=== PATIENT | female | born 1965 | race Hispanic/Latino ===

== ENCOUNTER 2019-11-01 08:08 | Day surgery (SDC) | payer BC ==
[2019-11-01] MEDS ORDERED: fentaNYL 100 MCG/2 ML INJ IV PRN (08:49)
--- NOTE | 2019-11-01 08:49 | Anesthesia Consultation ---
Anesthesia Consult and Med Hx Date of service: 11/01/19 - Airway Anesthetic Teeth Evaluation: Good ROM Head & Neck: Adequate Mental/Hyoid Distance: Adequate Mallampati Class: Class II Intubation Access Assessment: Probably Good - Pulmonary Exam CTA: Yes - Cardiac Exam Cardiac Exam: RRR - Pre-Operative Health Status ASA Pre-Surgery Classification: ASA3 Proposed Anesthetic Plan: General - Pulmonary Hx Smoking: No Hx Respiratory Symptoms: No Hx Sleep Apnea: Yes (compliant with CPAP) - Cardiovascular System Hx Hypertension: Yes (recent diagnosis, no currently on meds) Hx Heart Attack/AMI: No Hx Percutaneous Transluminal Coronary Angioplasty (PTCA): No - Central Nervous System CVA: No - Gastrointestinal Hx Gastroesophageal Reflux Disease: No - Endocrine Hx Renal Disease: No Hx Liver Disease: No Hx Insulin Dependent Diabetes: No Hx Non-Insulin Dependent Diabetes: No Hx Thyroid Disease: No - Other Systems Hx Obesity: Yes (BMI 42) - Additional Comments Anesthesia Medical History Comments: No hx anesthetic complications.
--- NOTE | 2019-11-01 08:49 | Anesthesia Day of Surgery ---
Anesthesia Day of Surgery - Day of Surgery Patient Examined: Yes Patient H&P Reviewed: Yes Patient is NPO: Yes
[2019-11-01] MEDS ORDERED: LACTATED RINGERS 1,000 ML IV SCH (09:00)
[2019-11-01] MEDS ORDERED: MIDAZOLAM 2 MG/2 ML INJ IV NR (09:00)
[2019-11-01] MEDS ORDERED: LIDOCAINE MPF (2%) 20 MG/1 ML VIAL 5 ML ONE (10:32)
[2019-11-01] MEDS ORDERED: fentaNYL 100 MCG/2 ML INJ ONE (10:32)
[2019-11-01] MEDS ORDERED: propofoL 200 MG/20 ML VIAL IV ONE (10:33)
[2019-11-01] MEDS ORDERED: dexAMETHasone 20 MG/5 ML VIAL ONE (11:44)
[2019-11-01] MEDS ORDERED: ONDANSETRON 4 MG/2 ML INJ ONE (11:44)
[2019-11-01] MEDS ORDERED: IOHEXOL 300 MG/ML 50ML IV ONE (12:05)
--- NOTE | 2019-11-01 12:05 | Post Operative Note ---
Date of procedure: 11/01/19 Pre-op diagnosis: left ureteral stone Post-op diagnosis: same Findings: stone Procedure: cysto ureteroscpy Anesthesia: GETA Estimated blood loss: none Pathology: list (stone) Specimen disposition: given to patient/family Condition: stable Disposition: PACU
--- NOTE | 2019-11-01 12:05 | Discharge Summary ---
Short Stay Discharge Plan Activity: other (no straining) Weight Bearing Status: Full Weight Bearing Diet: regular, low fat Special Instructions: other (stent) Durable Medical Equipment Needed Upon Discharge: other (j stent) Follow up with: PABLITO BLAND PA [Primary Care Provider] - 7 Days DORITA TURK MD [Staff Physician] - 7 Days
--- NOTE | 2019-11-01 12:25 | Operative Report ---
PREOPERATIVE DIAGNOSIS: Left distal ureteral stone. POSTOPERATIVE DIAGNOSIS: Left distal ureteral stone. PROCEDURE: Cystoscopy, left retrograde, left ureteroscopy, balloon dilatation, stone extraction, J stent. SURGEON: Dr. Perez. ANESTHESIA: General. FINDINGS: This is a woman with intermittent pain, left flank and now presents for treatment. All risks and implications discussed. DESCRIPTION OF PROCEDURE: The patient was brought out to the operating room and placed on the operating table. Following induction of anesthesia, placed in lithotomy position, prepped and draped in usual sterile fashion. The patient has a moderate enterocele and rectocele. Retrograde showed some colonization distal ureter. Balloon dilatation was carried out after wire coiled in the kidney. Ureteroscopy revealed the stone, which was extracted with a 3-prong grasper. The patient tolerated the procedure well. Double-J coiled in the kidney and bladder with the string, brought to recovery in stable condition. JOB# [id number] LORRAINE/TANG
[2019-11-01 13:31] VITALS: BP 127/85
--- NOTE | 2019-11-01 14:21 | Fluoroscopy Report ---
INTRAOPERATIVE FLUOROSCOPY: ABDOMEN INDICATION: LT URETERAL STONE. TECHNIQUE: Intraoperative spot images were obtained during the procedure. FINDINGS: Limited spot fluoroscopy of the abdomen was submitted to guide left ureteroscopy and stone retrieval with subsequent stent placement. Please see the procedure report for further details. Fluoroscopy Time: 52 seconds. Fluoroscopy Images: 5. Signer Name: Valerio Summers MD Signed: 11/01/2019 2:17 PM Workstation Name: [id number]
--- NOTE | 2019-11-02 09:28 | Fluoroscopy Report ---
FL ureter/nephrostomy dilat LT INDICATION / CLINICAL INFORMATION: LT URETERAL STONE. COMPARISON: None available. FINDINGS: Left ureteroscopy Fluoroscopy time: 52 seconds. Fluoroscopic images: 1. Signer Name: Talib Miller MD Signed: 11/02/2019 9:23 AM Workstation Name: [id number]
== END 2019-11-01 13:25 | disposition home or self-care (01) ==
LOC: OR 08:08
PROVIDERS: ATTEND Urology
DX: N20.1 Calculus of ureter (principal); I10 Essential (primary) hypertension; G47.30 Sleep apnea, unspecified; E66.9 Obesity, unspecified; Z68.41 Body mass index [BMI] 40.0-44.9, adult; Z87.442 Personal history of urinary calculi; Z88.6 Allergy status to analgesic agent; Z79.899 Other long term (current) drug therapy; Z90.49 Acquired absence of other specified parts of digestive tract; Z98.890 Other specified postprocedural states
CPT/HCPCS: 52332; 52352; 74420; 74485; C1726; C1769; C2617; J1100; J1956; J2250; J2405; J2704; J3010; J7120; Q9967